=== PATIENT | female | born 1945 | race Caucasian/White ===

== ENCOUNTER → 2017-03-01 | Outpatient (CLI) | payer MEDICARE, BC ==
[~2017-03-01] MED LIST: AMBIEN10 MG PO; ATORVASTATIN CA10 MG PO; BENZONATATE100 MG PO; CALTRATE 600 +1 EAC1 PO; CENTRUM SILVER1 EAC3 PO; COZAAR50 MG PO; INDERAL10 MG PO; LYRICA75 MG PO; MIRALAX17 GM PO; NUCYNTA50 MG PO; SAXENDA3 MG/0.5 M SUBCUT; VALTREX1000 MG PO; VENLAFAXINE HC150 MG PO; VITAMIN D31000 UNIT PO; WELLBUTRIN SR150 MG PO; ZANTAC300 MG PO
== END | disposition short-term general hospital (02) ==
LOC: CLPAIN 10:29
DX: M46.1 Sacroiliitis, not elsewhere classified (principal); M41.9 Scoliosis, unspecified; M81.0 Age-related osteoporosis without current pathological fracture; M70.62 Trochanteric bursitis, left hip